=== PATIENT | male | born 1985 | race Caucasian/White ===

== ENCOUNTER 2024-09-01 17:54 | Emergency (ER) | payer OTHER ==
[2024-09-01 18:40] VITALS: RESP 18; BMI 22.4
[2024-09-01 19:55] LABS: ABSOLUTE IMMATURE GRANULOCYTES 0.02 x10^3/uL (0.0-0.031); BASOPHILS # 0.04 x10^3/uL (0.01-0.08); EOSINOPHIL % 2.5 % (0.8-7.0); EOSINOPHILS # 0.15 x10^3/uL (0.04-0.54); HEMATOCRIT 36.2 % (40.1-51.0); HEMOGLOBIN 10.9 g/dL (13.7-17.5); MCHC 30.1 g/dl (32.3-36.5); MEAN CELL VOLUME 80.4 fl (79.0-92.2); MEAN PLT VOLUME 9.6 fl (9.4-12.4); MONOCYTE # 0.62 x10^3/uL (0.30-0.82); MONOCYTE % 10.1 % (5.3-12.2); PLATELET COUNT 282 x10^3/uL (163-337); RDW 17.8 % (12.0-15.6)
[2024-09-01 20:14] LABS: POTASSIUM 4.5 mmol/L (3.5-5.1)
[2024-09-01 20:15] LABS: CALCIUM 8.8 mg/dL (8.5-10.1)
[2024-09-01 20:17] LABS: ALBUMIN 3.5 g/dl (3.4-5.0); BLOOD UREA NITROGEN 8.5 mg/dL (7-18)
[2024-09-01 20:20] LABS: CREATININE 0.6 mg/dL (0.55-1.3)
[2024-09-01 20:21] LABS: BILIRUBIN,TOTAL 0.3 mg/dL (0.2-1); TOT PROT 7.6 g/dl (6.4-8.2)
[2024-09-01 22:42] VITALS: BP 134/82; PULSE 80; TEMP 98.6
== END 2024-09-01 22:55 | disposition home or self-care (01) ==
LOC: JER 17:54
DX: Z00.00 Encounter for general adult medical examination without abnormal findings (principal)
CPT/HCPCS: 36415; 80053; 85025; 86780; 99283-25